=== PATIENT | male | born 1980 | race Caucasian/White ===

== ENCOUNTER 2017-04-18 03:29 | Inpatient (IN) | payer MEDICAID, OTHER ==
[~2017-04-18] VITALS: Ht 180.3 cm; Wt 84.0 kg
[2017-04-18] MEDS ORDERED: vancomycin inj 1,000 MG in normal saline 250ml IV soln 250 ML IV STA (03:44)
[2017-04-18] MEDS ORDERED: normal saline 1000ML IV soln IV ONE (03:45)
[2017-04-18] MEDS ORDERED: iohexol 300mg/ml 100ml inj. ONE (03:53)
[2017-04-18 04:08] LABS: BASOPHILS % (AUTO) 0 % (0-1); EOSINOPHILS # (AUTO) 0.4 X10'3 (0-0.9); EOSINOPHILS % (AUTO) 1.5 % (0-6); HEMATOCRIT 40.3 % (42.0-52.0); HEMOGLOBIN 14.1 g/dl (14.0-17.9); LYMPHOCYTES # (AUTO) 0.9 X10'3 (1.1-4.8); LYMPHOCYTES % (AUTO) 3.2 % (21-51); MEAN CORPUSCULAR HEMOGLOBIN 31.7 PG (27.0-31.0); MEAN CORPUSCULAR HGB CONC 35.1 % (33.0-36.5); MEAN CORPUSCULAR VOLUME 90.4 FL (78-98); MEAN PLATELET VOLUME 6.8 FL (7.4-10.4); MONOCYTES % (AUTO) 3.6 % (2-12); NEUTROPHILS # (AUTO) 24.9 X10'3 (1.8-7.7); NEUTROPHILS % (AUTO) 91.7 % (42-75); PLATELET COUNT 322 X10'3 (140-440); RED BLOOD COUNT 4.46 X10'6 (4.70-6.10); RED CELL DISTRIBUTION WIDTH 12.7 % (11.5-14.5)
[2017-04-18] MEDS ORDERED: vancomycin/NS 1 GM ADD-VANTAGE 250 ML IV ONE ×2 (04:15→09:03)
[2017-04-18 04:17] LABS: WHITE BLOOD COUNT 27.1 X10'3 (4.5-11.0)
[2017-04-18] MEDS ORDERED: ampicillin/sulbac 3gm/NS 100ml 100 ML IV STA (04:20)
[2017-04-18 04:24] LABS: ALANINE AMINOTRANSFERASE 16 U/L (12-78); ALBUMIN 3.6 G/DL (3.4-5.0); ALBUMIN/GLOBULIN RATIO 0.9 (1.1-1.5); ALKALINE PHOSPHATASE 88 IU/L (46-116); ANION GAP 12 (8-16); ASPARTATE AMINO TRANSFERASE 11 U/L (10-37); BILIRUBIN,TOTAL 0.6 MG/DL (0.1-1.0); BLOOD UREA NITROGEN 13 MG/DL (7-18); BUN/CREATININE RATIO 14.4 (5.4-32.0); CALCIUM 8.5 MG/DL (8.5-10.1); CHLORIDE 100 MMOL/L (99-107); GLUCOSE 119 MG/DL (70-104); MAGNESIUM 1.5 MG/DL (1.5-2.4); POTASSIUM 3.6 MMOL/L (3.5-5.1); SODIUM 135 MMOL/L (135-145); TOTAL CARBON DIOXIDE 23.3 MMOL/L (24-32); TOTAL PROTEIN 7.6 G/DL (6.4-8.2); eGFR > 90 ML/MIN
[2017-04-18] MEDS ORDERED: LIDOcaine 1.5% w/epinephrine 1:200,000 5ml ampul IJ ONE (04:30)
[2017-04-18] MEDS ORDERED: fentaNYL/PF 50MCG/1 ML 2ML syringe IV ONE (04:35)
[2017-04-18] MEDS ORDERED: SULF1TAB49 PO (05:40)
[2017-04-18] MEDS ORDERED: CEPH500C5 PO (05:40)
[2017-04-18 06:55] LABS: PLATELET ESTIMATE NORMAL; TOTAL CELLS COUNTED 100
[2017-04-18] MEDS ORDERED: ampicillin/sulbac 3gm/NS 100ml 100 ML IV SCH (08:00)
[2017-04-18] MEDS ORDERED: ondansetron/PF 4mg/2ml inj IV PRN (08:50)
[2017-04-18] MEDS ORDERED: acetaminophen 325mg tablet PO PRN (08:50)
[2017-04-18] MEDS ORDERED: mag hydrox/Alum hydrox/simeth 30ml oral suspension PO PRN (08:50)
[2017-04-18] MEDS ORDERED: magnesium hydroxide 30ml (MOM) UD suspension PO PRN (08:50)
[2017-04-18] MEDS ORDERED: vancomycin/NS 1 GM ADD-VANTAGE 250 ML IV SCH ×2 (08:55→09:00)
[2017-04-18] MEDS: normal saline 1000ml 1,000 ML IV SCH ×2 (09:28→18:46)
[2017-04-18] MEDS: cefTRIAXone 1g/NS 100ml IVPB 100 ML IV SCH (09:28)
[2017-04-18 10:05] VITALS: BP 136/66
[2017-04-18] MEDS: morphine 2 MG/ML inj. syringe IV PRN (10:24)
[2017-04-18] MEDS ORDERED: NO HOME MEDS (12:09)
[2017-04-18] MEDS: vancomycin inj 1,250 MG in normal saline 250ml IV soln 250 ML IV SCH ×2 (16:00→23:50)
[2017-04-18] MEDS: lactobacillus rhamnosus 10,000 MMU CELLS/CAPSULE PO SCH (19:56)
[2017-04-18] MEDS: nicotine 14mg patch - 24hr TD SCH (19:57)
[2017-04-18 20:00] VITALS: BP 120/68
[2017-04-18] MEDS: HYDROmorphone inj. 0.5 MG/0.5 ML DISP.SYRIN IV PRN (21:06)
[2017-04-19] VITALS: BP 128/77
[2017-04-19] MEDS: normal saline 1000ml 1,000 ML IV SCH ×3 (04:03→20:58)
[2017-04-19 05:17] VITALS: BP 128/77
[2017-04-19 06:00] LABS: BASOPHILS % (AUTO) 0.1 % (0-1); EOSINOPHILS # (AUTO) 0.2 X10'3 (0-0.9); EOSINOPHILS % (AUTO) 0.8 % (0-6); HEMATOCRIT 39.5 % (42.0-52.0); HEMOGLOBIN 13.8 g/dl (14.0-17.9); LYMPHOCYTES # (AUTO) 1.5 X10'3 (1.1-4.8); LYMPHOCYTES % (AUTO) 5.2 % (21-51); MEAN CORPUSCULAR HEMOGLOBIN 31.8 PG (27.0-31.0); MEAN CORPUSCULAR HGB CONC 34.9 % (33.0-36.5); MEAN CORPUSCULAR VOLUME 91.3 FL (78-98); MEAN PLATELET VOLUME 6.6 FL (7.4-10.4); MONOCYTES # (AUTO) 1.6 X10'3 (0-0.9); MONOCYTES % (AUTO) 5.8 % (2-12); NEUTROPHILS # (AUTO) 24.9 X10'3 (1.8-7.7); NEUTROPHILS % (AUTO) 88.1 % (42-75); PLATELET COUNT 282 X10'3 (140-440); RED BLOOD COUNT 4.32 X10'6 (4.70-6.10); RED CELL DISTRIBUTION WIDTH 12.4 % (11.5-14.5)
[2017-04-19 06:05] LABS: INR 1.1 INR; PARTIAL THROMBOPLASTIN TIME 33 SECONDS (22-32); PROTHROMBIN TIME 11.1 SECONDS (9.0-12.0)
[2017-04-19 06:09] LABS: WHITE BLOOD COUNT 28.3 X10'3 (4.5-11.0)
[2017-04-19 06:21] LABS: ALANINE AMINOTRANSFERASE 12 U/L (12-78); ALBUMIN 2.7 G/DL (3.4-5.0); ALBUMIN/GLOBULIN RATIO 0.7 (1.1-1.5); ALKALINE PHOSPHATASE 75 IU/L (46-116); ANION GAP 9 (8-16); ASPARTATE AMINO TRANSFERASE 10 U/L (10-37); BILIRUBIN,TOTAL 0.9 MG/DL (0.1-1.0); BLOOD UREA NITROGEN 8 MG/DL (7-18); BUN/CREATININE RATIO 8.5 (5.4-32.0); CALCIUM 8.6 MG/DL (8.5-10.1); CHLORIDE 102 MMOL/L (99-107); CREATININE 0.94 MG/DL (0.60-1.10); GLUCOSE 105 MG/DL (70-104); POTASSIUM 4.1 MMOL/L (3.5-5.1); SODIUM 138 MMOL/L (135-145); TOTAL CARBON DIOXIDE 27.2 MMOL/L (24-32); TOTAL PROTEIN 6.8 G/DL (6.4-8.2); eGFR > 90 ML/MIN
[2017-04-19] MEDS: lactobacillus rhamnosus 10,000 MMU CELLS/CAPSULE PO SCH ×2 (07:30→18:24)
[2017-04-19] MEDS: nicotine 14mg patch - 24hr TD SCH (07:40)
[2017-04-19] MEDS: HYDROmorphone inj. 0.5 MG/0.5 ML DISP.SYRIN IV PRN ×3 (07:40→23:26)
[2017-04-19] MEDS: cefTRIAXone 1g/NS 100ml IVPB 100 ML IV SCH (07:49)
[2017-04-19 08:00] VITALS: BP 134/68
[2017-04-19 08:31] VITALS: BP 134/68
[2017-04-19 09:18] LABS: PLATELET ESTIMATE NORMAL; TOTAL CELLS COUNTED 100
[2017-04-19] MEDS: vancomycin inj 1,250 MG in normal saline 250ml IV soln 250 ML IV SCH ×2 (10:04→15:25)
[2017-04-19 11:24] VITALS: BP 128/69
[2017-04-19] MEDS ORDERED: iohexol 300mg/ml 100ml inj. ONE (16:22)
[2017-04-19 20:00] VITALS: BP 115/70
[2017-04-19] MEDS ORDERED: VANCOMYCIN LEVEL IV ONE (23:30)
[2017-04-19] MEDS: piperacillin/tazo 3.375gm/50ml 50 ML IV SCH (23:31)
[2017-04-20] MEDS: vancomycin inj 1,250 MG in normal saline 250ml IV soln 250 ML IV SCH ×2 (00:41→08:46)
[2017-04-20 01:06] VITALS: BP 120/69
[2017-04-20] MEDS: piperacillin/tazo 3.375gm/50ml 50 ML IV SCH ×2 (06:52→16:06)
[2017-04-20] MEDS: nicotine 14mg patch - 24hr TD SCH (06:53)
[2017-04-20] MEDS: lactobacillus rhamnosus 10,000 MMU CELLS/CAPSULE PO SCH ×2 (06:53→17:09)
[2017-04-20] MEDS: normal saline 1000ml 1,000 ML IV SCH ×2 (07:03→21:22)
[2017-04-20 07:26] VITALS: BP 119/68
[2017-04-20 09:25] LABS: BASOPHILS % (AUTO) 0 % (0-1); EOSINOPHILS # (AUTO) 0.4 X10'3 (0-0.9); EOSINOPHILS % (AUTO) 1.6 % (0-6); HEMATOCRIT 37.2 % (42.0-52.0); HEMOGLOBIN 12.8 g/dl (14.0-17.9); LYMPHOCYTES # (AUTO) 1.3 X10'3 (1.1-4.8); LYMPHOCYTES % (AUTO) 5.4 % (21-51); MEAN CORPUSCULAR HEMOGLOBIN 31.4 PG (27.0-31.0); MEAN CORPUSCULAR HGB CONC 34.5 % (33.0-36.5); MEAN CORPUSCULAR VOLUME 90.8 FL (78-98); MEAN PLATELET VOLUME 6.3 FL (7.4-10.4); MONOCYTES # (AUTO) 1.2 X10'3 (0-0.9); MONOCYTES % (AUTO) 5.1 % (2-12); NEUTROPHILS # (AUTO) 20.5 X10'3 (1.8-7.7); NEUTROPHILS % (AUTO) 87.9 % (42-75); PLATELET COUNT 301 X10'3 (140-440); RED BLOOD COUNT 4.09 X10'6 (4.70-6.10); RED CELL DISTRIBUTION WIDTH 12.9 % (11.5-14.5); WHITE BLOOD COUNT 23.4 X10'3 (4.5-11.0)
[2017-04-20 11:10] VITALS: BP 108/62
[2017-04-20] MEDS: HYDROmorphone inj. 0.5 MG/0.5 ML DISP.SYRIN IV PRN (17:11)
[2017-04-20 20:00] VITALS: BP 113/65
[2017-04-20] MEDS: morphine 2 MG/ML inj. syringe IV PRN (21:29)
[2017-04-21] VITALS: BP 123/73
[2017-04-21] MEDS: piperacillin/tazo 3.375gm/50ml 50 ML IV SCH ×2 (00:28→07:38)
[2017-04-21] MEDS: morphine 2 MG/ML inj. syringe IV PRN (01:50)
[2017-04-21 05:48] LABS: BASOPHILS # (AUTO) 0.1 X10'3 (0-0.2); BASOPHILS % (AUTO) 0.3 % (0-1); EOSINOPHILS # (AUTO) 0.5 X10'3 (0-0.9); EOSINOPHILS % (AUTO) 2.7 % (0-6); HEMATOCRIT 35.6 % (42.0-52.0); HEMOGLOBIN 12.3 g/dl (14.0-17.9); LYMPHOCYTES # (AUTO) 1.9 X10'3 (1.1-4.8); LYMPHOCYTES % (AUTO) 10.6 % (21-51); MEAN CORPUSCULAR HEMOGLOBIN 31.7 PG (27.0-31.0); MEAN CORPUSCULAR HGB CONC 34.6 % (33.0-36.5); MEAN CORPUSCULAR VOLUME 91.4 FL (78-98); MEAN PLATELET VOLUME 6.6 FL (7.4-10.4); MONOCYTES # (AUTO) 1.3 X10'3 (0-0.9); MONOCYTES % (AUTO) 7.4 % (2-12); NEUTROPHILS # (AUTO) 14.1 X10'3 (1.8-7.7); PLATELET COUNT 332 X10'3 (140-440); RED BLOOD COUNT 3.89 X10'6 (4.70-6.10); RED CELL DISTRIBUTION WIDTH 12.4 % (11.5-14.5); WHITE BLOOD COUNT 17.9 X10'3 (4.5-11.0)
[2017-04-21] MEDS: normal saline 1000ml 1,000 ML IV SCH ×2 (06:46→09:17)
[2017-04-21] MEDS: nicotine 14mg patch - 24hr TD SCH (07:41)
[2017-04-21] MEDS: lactobacillus rhamnosus 10,000 MMU CELLS/CAPSULE PO SCH ×2 (07:43→16:46)
[2017-04-21 08:07] VITALS: BP 104/58
[2017-04-21] MEDS: HYDROmorphone inj. 0.5 MG/0.5 ML DISP.SYRIN IV PRN ×3 (09:17→21:10)
[2017-04-21 11:00] VITALS: BP 104/64
[2017-04-21] MEDS ORDERED: VANCOMYCIN LEVEL IV ONE (15:30)
[2017-04-21 19:30] VITALS: BP 123/68
[2017-04-22] VITALS: BP 117/62
[2017-04-22] MEDS: normal saline 1000ml 1,000 ML IV SCH ×3 (00:16→22:46)
[2017-04-22] MEDS: HYDROmorphone inj. 0.5 MG/0.5 ML DISP.SYRIN IV PRN ×3 (05:18→16:00)
[2017-04-22 08:00] VITALS: BP 107/51
[2017-04-22] MEDS: lactobacillus rhamnosus 10,000 MMU CELLS/CAPSULE PO SCH ×2 (08:05→17:53)
[2017-04-22] MEDS: nicotine 14mg patch - 24hr TD SCH (08:06)
[2017-04-22 11:00] VITALS: BP 112/61
[2017-04-22] MEDS ORDERED: lactobacillus rhamnosus 10,000 MMU CELLS/CAPSULE PO SCH (17:30)
[2017-04-22 19:30] VITALS: BP 120/60
[2017-04-23 00:15] VITALS: BP 105/58
[2017-04-23] MEDS: normal saline 1000ml 1,000 ML IV SCH (03:58)
[2017-04-23] MEDS: HYDROmorphone inj. 0.5 MG/0.5 ML DISP.SYRIN IV PRN ×2 (07:17→11:06)
[2017-04-23] MEDS: lactobacillus rhamnosus 10,000 MMU CELLS/CAPSULE PO SCH (07:19)
[2017-04-23] MEDS: nicotine 14mg patch - 24hr TD SCH (07:22)
[2017-04-23 07:30] VITALS: BP 115/59
[2017-04-23] MEDS ORDERED: ibuprofen tablet 400 MG TABLET PO ONE (10:55)
[2017-04-23 11:29] VITALS: BP 113/69
== END 2017-04-23 17:30 | disposition home or self-care (01) | DRG 710 ==
LOC: ER 03:30 → ED HOLD 08:46 → MED 3N 12:03
PROVIDERS: ADMIT Internal Medicine; ATTEND Internal Medicine
PROC: 0Y950ZZ Drainage of Right Inguinal Region, Open Approach (ICD-10-PCS; principal; 2017-04-18)
DX: A41.9 Sepsis, unspecified organism (principal); L03.115 Cellulitis of right lower limb; L02.214 Cutaneous abscess of groin; I88.9 Nonspecific lymphadenitis, unspecified; M60.9 Myositis, unspecified; F17.210 Nicotine dependence, cigarettes, uncomplicated; B95.62 Methicillin resistant Staphylococcus aureus infection as the cause of diseases classified elsewhere
CPT/HCPCS: 10060; 36415; 72193; 80053; 80202; 83605; 83735; 84145; 85025; 85610; 85730; 87040; 87070; 87077; 87186; 93971; 96365; 96375; 99285; A6212; A6213; A6266; A6449; J0295; J0696; J1170; J2270; J2543; J3010; J3370; J3490; J7030; Q9967

== ENCOUNTER 2018-01-31 03:55 | Emergency (ER) | payer MEDICAID ==
[~2018-01-31] VITALS: Ht 180.3 cm; Wt 61.2 kg
[2018-01-31 03:56] VITALS: BP 130/81
[2018-01-31] MEDS ORDERED: SULF1TAB49 PO (06:08)
[2018-01-31] MEDS ORDERED: HYDR-4353 PO (06:08)
== END 2018-01-31 06:33 | disposition home or self-care (01) ==
LOC: ER 03:56
DX: S60.944A Unspecified superficial injury of right ring finger, initial encounter (principal); F17.200 Nicotine dependence, unspecified, uncomplicated; Z79.899 Other long term (current) drug therapy; X58.XXXA Exposure to other specified factors, initial encounter; Y93.89 Activity, other specified; Y92.89 Other specified places as the place of occurrence of the external cause; Y99.8 Other external cause status
CPT/HCPCS: 99283

== ENCOUNTER 2018-03-20 18:40 | Emergency (ER) | payer MEDICAID ==
[~2018-03-20] VITALS: Ht 180.3 cm; Wt 82.0 kg
[2018-03-20 18:45] VITALS: BP 140/88
[2018-03-20] MEDS ORDERED: ketorolac trometh inj. 60 MG/2 ML VIAL IM ONE (19:00)
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
[2018-03-20] MEDS ORDERED: CLIN150C2 PO (19:06)
[2018-03-20] MEDS ORDERED: acetaminophen 325mg tablet PO STA (19:18)
== END 2018-03-20 19:41 | disposition home or self-care (01) ==
LOC: ER 18:41
DX: S80.211A Abrasion, right knee, initial encounter (principal); L03.113 Cellulitis of right upper limb; Z79.2 Long term (current) use of antibiotics; X58.XXXA Exposure to other specified factors, initial encounter; Y93.89 Activity, other specified; Y92.89 Other specified places as the place of occurrence of the external cause; Y99.8 Other external cause status
CPT/HCPCS: 96372; 99283; J1885

== ENCOUNTER 2018-04-22 12:26 | Emergency (ER) | payer MEDICAID ==
[~2018-04-22] VITALS: Ht 180.3 cm; Wt 84.1 kg
[2018-04-22 12:43] VITALS: BP 131/83
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
[2018-04-22] MEDS ORDERED: proparacaine 0.5% ophthalmic drops 15ml LEFTEYE ONE (13:15)
[2018-04-22] MEDS ORDERED: proparacaine 0.5% ophthalmic drops 15ml EACHEYE ONE (13:35)
[2018-04-22] MEDS ORDERED: TOBR5DRO2 LEFTEYE (13:49)
== END 2018-04-22 14:19 | disposition home or self-care (01) ==
LOC: ER 12:26
DX: S05.02XA Injury of conjunctiva and corneal abrasion without foreign body, left eye, initial encounter (principal); Z79.899 Other long term (current) drug therapy; W22.8XXA Striking against or struck by other objects, initial encounter; Y93.89 Activity, other specified; Y92.89 Other specified places as the place of occurrence of the external cause; Y99.8 Other external cause status
CPT/HCPCS: 99283

== ENCOUNTER 2018-06-09 02:40 | Emergency (ER) | payer MEDICAID ==
[~2018-06-09] VITALS: Ht 180.3 cm; Wt 70.5 kg
[~2018-06-09 02:40] MED LIST: TOBR5DRO2 LEFTEYE
[2018-06-09 03:00] VITALS: BP 124/51
[2018-06-09] MEDS ORDERED: DOXYCYCLINE 100MG CAPSULE PO STA (03:27)
[2018-06-09] MEDS ORDERED: CEPH250T PO (03:29)
[2018-06-09] MEDS ORDERED: DOXY100C43 PO (03:29)
[2018-06-09] MEDS ORDERED: ondansetron 4mg rapidly disintigrating tab PO ONE (03:30)
[2018-06-09] MEDS ORDERED: acetaminophen 325mg tablet PO ONE (03:30)
[2018-06-09] MEDS ORDERED: cephalexin 500mg capsule PO ONE (03:30)
== END 2018-06-09 04:14 | disposition home or self-care (01) ==
LOC: ER 02:41
DX: L02.415 Cutaneous abscess of right lower limb (principal); Z79.2 Long term (current) use of antibiotics
CPT/HCPCS: 99284

== ENCOUNTER 2020-07-07 12:55 | Emergency (ER) | payer MEDICAID ==
[~2020-07-07] VITALS: Ht 180.3 cm; Wt 91.0 kg
[2020-07-07 13:15] VITALS: BP 114/98
[2020-07-07] MEDS ORDERED: proparacaine 0.5% ophthalmic drops 15ml RIGHTEYE ONE (13:20)
[2020-07-07] MEDS ORDERED: ciprofloxacin 0.3% 2.5ml ophthalmic solution RIGHTEYE ONE (15:20)
[2020-07-07] MEDS ORDERED: CIPR2.5D21 RIGHTEYE (15:35)
== END 2020-07-07 16:02 | disposition home or self-care (01) ==
LOC: ER 12:55
DX: S05.01XA Injury of conjunctiva and corneal abrasion without foreign body, right eye, initial encounter (principal); X58.XXXA Exposure to other specified factors, initial encounter; Z79.2 Long term (current) use of antibiotics; Z79.82 Long term (current) use of aspirin; Y93.89 Activity, other specified; Y92.89 Other specified places as the place of occurrence of the external cause; Y99.8 Other external cause status
CPT/HCPCS: 99284

== ENCOUNTER 2021-09-03 07:26 | Emergency (ER) | payer MEDICAID ==
[~2021-09-03] VITALS: Ht 182.9 cm; Wt 84.1 kg
[2021-09-03 07:36] VITALS: BP 121/72
[2021-09-03] MEDS ORDERED: LIDOcaine 1% W/epiNEPHrine 1:100,000 20ml vial SQ ONE (12:15)
[2021-09-03] MEDS ORDERED: sulfamethoxazole/trimethoprim DS (800/160mg) tablet PO ONE (13:05)
[2021-09-03] MEDS ORDERED: SULF1TAB49 PO (13:08)
== END 2021-09-03 13:27 | disposition home or self-care (01) ==
LOC: ER 07:27
DX: L02.413 Cutaneous abscess of right upper limb (principal); Z72.89 Other problems related to lifestyle; Z79.899 Other long term (current) drug therapy
CPT/HCPCS: 10060; 99283; A6449